=== PATIENT | female | born 1970 | race African-American/Black ===

== ENCOUNTER 2016-10-10 11:40 | Observation (INO) ==
[2016-10-10] MEDS ORDERED: ALUM/MAG/SIMETH/LIDO VISC 1:1 30 ML BOTTLE PO STA (13:01)
[2016-10-10] MEDS ORDERED: ENOXAPARIN 100 MG/ML SYRINGE SUBCUT STA (13:01)
[2016-10-10] MEDS ORDERED: NITROGLYCERIN SL 0.4 MG TABLET SL PRN (13:01)
[2016-10-10] MEDS ORDERED: MORPHINE 2 MG/1 ML SYRINGE IV PRN ×2 (13:01→16:16)
[2016-10-10] MEDS ORDERED: ONDANSETRON 4 MG/2 ML VIAL IV PRN (13:01)
[2016-10-10] MEDS ORDERED: ASPIRIN 325 MG TABLET PO STA (13:01)
[2016-10-10] MEDS ORDERED: NITROGLYCERIN 2% OINT 1 INCH/GM PACK TOP STA (13:01)
--- NOTE | 2016-10-10 13:05 | EKG Report ---
Stationary ECG Study [facility] ER Test Date: 10/10/2016 11:49:09 AM Pat Name: RADHA OROZCO Department: Room: Gender: F Lead Cashier: Kathie Mcdonough : 1970 Requested by: Berry Qureshi Order Number: [id number] Reading MD: RAY GUDINO Intervals [place] Rate: 98 P: 73 DC: 120 QRS: 50 QRSD: 93 T: 71 QT: 326 QTc: 381 Interpretive Statements SINUS RHYTHM Electronically Signed On 10-11-16 18:51:32 CDT by RAY GUDINO [email or web address]
--- NOTE | 2016-10-10 13:05 | Emergency Department Note ---
Arrival - Arrival Chief Complaint: Chest Pain Stated Complaint: chest pain ED Nursing Triage Note: pain in center of chest that started last night while she was at work. denies any other s/s. reports some stress. reports a soreness to left shoulder to in the joint. Mode of Arrival: Ambulatory Source: Patient, RN Notes Reviewed Time Seen by Provider: 10/10/16 12:52 - History of Present Illness HPI Narrative: Patient is a 46-year-old black female with a history of left-sided chest pain which began yesterday and has been off and on since that time. Patient cannot relate her pain to exertion. There is no specific activity that brings on her pain. She states that she feels that she is under a lot of stress at work. She denies associated shortness of breath or diaphoresis. She denies associated nausea. She has had a cough. She denies sputum production. There is no history of hemoptysis. She does not smoke cigarettes. She does have a history of hypertension but denies any history of diabetes mellitus. There is no family history of coronary artery disease in her mother father or brothers. Date of Last Menstrual Period: 09/22/16 Allergies/Adverse Reactions: Allergies Allergy/AdvReac Type Severity Reaction Status Date / Time No Known Allergies Allergy Verified 07/19/16 10:28 Home Medications: Home Medications Medication Instructions Recorded Confirmed Type Losartan Potassium [Losartan 50 mg PO QAM 10/10/16 10/10/16 History Potassium] Review of System - Review of System 12 point system: reviewed and no additional remarkable complaints except as stated - Review of System Constitutional: Absent: chills, fever Respiratory: Present: cough. Absent: respiratory distress, wheezing Cardiovascular: Present: chest pain. Absent: palpitations, dyspnea on exertion , orthopnea, edema Gastrointestinal: Absent: abdominal pain, nausea, vomiting Genitourinary female: Absent: dysuria Medical,Surgical,& Family Hx - Medical History Cardio: History of: Hypertension - Family History Family History: Reports;: Family Hypertension - Social History Smoking Status: Never smoker Functional capacity: independent ambulation Exam Vital Signs: Vital Signs Temperature 98.1 F 10/10/16 13:00 Pulse Rate 90 10/10/16 14:15 Respiratory Rate 20 10/10/16 14:15 Blood Pressure 153/92 10/10/16 14:15 O2 Sat by Pulse Oximetry 98 10/10/16 14:15 GENERAL: This is a well-nourished well-developed black female in no apparent distress. VITAL SIGNS: Reviewed HEENT: Head is atraumatic and normocephalic. Pupils are equal round react to light. Extraocular movements are intact. Oropharynx is benign with moist mucous membranes. NECK: Neck is soft and supple without tenderness. There are no masses. There is no lymphadenopathy. LUNGS: Lungs are clear to auscultation. Chest rises symmetrically. There is minimal tenderness to palpation over the left anterior chest wall adjacent to the costochondral junction chest wall tenderness. CV: Heart is regular rate and rhythm without murmurs rubs or gallops. ABDOMEN: Abdomen is soft, nontender to palpation. There are no abdominal abnormal masses palpated. There is no organomegaly. Bowel sounds are present and active. SKIN: Skin is warm and dry. No rash. EXTREMITIES: Patient has full range of motion without tenderness. There is no pedal edema. NEUROLOGIC: Awake alert and oriented 4. Cranial nerves II through XII are grossly intact. Motor is 5 over 5 in all extremities bilaterally. Course - Reevaluation(s) Reevaluation #1: Pain is relieved with Nitropaste and possibly GI cocktail. Patient states that she feels much better. Time: 15:25 - Consultations Consultation #1: Discussed with hospitalist. Patient will be admitted to their service for possible GXT in a.m. Time: 15:25 Results - Labs CBC & BMP: 10/10/16 14:25 10/10/16 14:25 Lab Results: I have reviewed the patients labs - EKG EKG results: interpreted by ERMD - Impressions EKG: Normal sinus rhythm with a rate of 98, normal ST-T waves, normal axis. - Diagnostic Findings Procedure: Chest x-ray: image reviewed by me (No infiltrates, no pleural effusions, no cardiomegaly) Disposition Clinical Impression: Chest pain, Essential hypertension Case discussed with: patient Condition: Stable Time of Disposition: 15:26
--- NOTE | 2016-10-10 13:44 | XRay Report ---
Two-view chest. Indication: Chest pain. Comparison: September 23, 2007. The heart and mediastinal contours are unremarkable. The pulmonary vasculature is normal. There is no consolidation, pneumothorax, or pleural effusion. The osseous structures are unremarkable. Impression: No abnormality is seen. PROCEDURE INTERPRETED AT [facility] DEPARTMENT OF RADIOLOGY Final Report Signed by: Dr. Hiral East
[2016-10-10] MEDS ORDERED: NITROGLYCERIN 2% OINT 1 INCH/GM PACK TOP ONE (13:55)
[2016-10-10] MEDS ORDERED: ENOXAPARIN 80 MG/0.8 ML SYRINGE SUBCUT ONE (13:56)
[2016-10-10] MEDS ORDERED: ALUM/MAG/SIMETH/LIDO VISC 1:1 30 ML BOTTLE PO ONE (13:56)
[2016-10-10] MEDS ORDERED: ASPIRIN 325 MG TABLET ONE (13:56)
[2016-10-10 14:21] LABS: Apearance,Urine CLEAR (Clear); Bilirubin,Urine Negative (Negative); Blood, Urine Small mg/dL (Negative); Glucose,Urine (UA) Negative (Negative); Ketones,Urine 5 mg/dL (Negative); Nitrite,Urine Negative (Negative); Protein,Urine Negative; RBC,Urine 1 /HPF (0-4); Urine Color Straw (Yellow); Urine Specific Gravity 1.003 (1.001-1.035); Urine Urobilinogen < 2.0 EU/DL (0.2-1.0); WBC,Urine <1 /HPF (0-6)
[2016-10-10 14:34] LABS: Basophils % 0.3 % (0.0-0.8); Eosinophils % 0.2 % (0.00-10.9); Hematocrit 42.1 VOL% (35.7-47.0); Hemoglobin 13.5 GM/DL (12.0-16.0); Immature Granulocytes % 0.2 %; Immature Granulocytes Absolute 0.02 #; Lymphocytes # 1.4 10*3/uL (1.4-4.0); Lymphocytes % 15.6 % (21.3-54.2); Mean Corpuscular HGB Conc 32.1 GM/DL (32-36); Mean Corpuscular Hemoglobin 28 PG (27-34); Mean Corpuscular Volume 86.4 FL (87-102); Mean Platelet Volume 11.8 FL (9.6-12.0); Monocytes # 0.6 10*3/uL (0.11-0.8); Monocytes % 6.2 % (1.7-12.7); Neutrophils # 7.1 10*3/uL (1.4-7.4); Neutrophils % 77.5 % (38.7-73.9); Platelet Count 203 T/CUMM (130-400); Red Blood Count 4.87 MC/CUMM (3.8-5.5); Red Cell Distribution Width 13.2 % (9.3-17.3); White Blood Count 9.2 T/CUMM (4-12)
[2016-10-10 14:41] LABS: Barbiturates Screen,Urine Negative (Negative); Benzodiazepines Screen,Urine Negative (Negative); Cannabinoid Screen,Urine Negative (Negative); Opiate Screen,Urine Negative (Negative); Phencyclidine Screen,Urine Negative (Negative)
[2016-10-10 14:49] LABS: Magnesium 2.4 MG/DL (1.8-2.4); PT Patient Result 10.5 SECS; Partial Thromboplastin Time 28.8 SECS (0-40)
[2016-10-10 14:54] LABS: Albumin 4.5 G/DL (3.4-5.0); Bilirubin,Total 0.7 MG/DL (0.2-1.0); Calcium 9.4 MG/DL (8.5-10.1); Osmolality,Calculated 268.8 MOS/KG (273-304); Potassium 5.2 MMOL/L (3.5-5.1); Total Protein 8.5 G/DL (6.4-8.3)
[2016-10-10] MEDS ORDERED: PROMETHAZINE 25 MG TABLET PO PRN (16:16)
[2016-10-10] MEDS ORDERED: guaiFENesin/DM ER 600-30 MG TABLET PO PRN (16:16)
[2016-10-10] MEDS ORDERED: ACETAMINOPHEN 325 MG TABLET PO PRN (16:16)
[2016-10-10] MEDS ORDERED: diphenhydrAMINE CAP 25 MG CAPSULE PO PRN (16:16)
[2016-10-10] MEDS ORDERED: DOCUSATE SODIUM 100 MG CAPSULE PO PRN (16:16)
--- NOTE | 2016-10-10 16:24 | Hospitalist History & Physical ---
<Erna Mann - Last Filed: 10/10/16 16:19> Assessment and Plan - Time spent with patient Time spent with patient: Greater than 30 minutes (1) Chest pain Status: Acute Assessment and plan: Ms. Delcid is a 46-year-old -Welsh female with history of hypertension admitted by hospitalist service under observation for chest pain. She does have hypertension so restart her home medicines so she did not take them this morning. We will go ahead and get serial troponins and serial EKG and monitor. Because patient has minimal risk factors we will hold off on cardiology consult to see what her serial labs show. Dr. House to see and examined patient and further recommendations to follow. Current Visit: Yes (2) Essential hypertension Status: Acute Current Visit: Yes History of Present Illness Chief complaint: chest pain History of present illness: Ms. Delcid is a 46 year old female with history of hypertension presenting to the ED today with 24 hour history of intermittent chest pain. Patient rates the pain at 2-5 out of 10. She does not associate the pain with nausea, vomiting, SOB or diaphoresis. pt states she lifts heavy things at work and she did a lot of it yesterday. she feels the pain mostly at work and when she gets home and relaxes, it goes away. she did not take her BP med today and she has no FH of heart problems. she denies headache, sob, nausea and vomiting, constipation, abdominal pain, or LE edema. today, her labs are normal and ekg is ok. she states the pain went away w the nitro patch put on in ED. patient is in no distress and her blood pressure is mildly elevated. She is nontender to the left chest wall and nontender with left upper extremity movement. pt was discussed w ED physician dr merino and hospitalist, dr house and it was decided the pt would be admitted for observation. Home Medications Medication Instructions Recorded Confirmed Type Losartan Potassium [Losartan 50 mg PO QAM 10/10/16 10/10/16 History Potassium] Allergies Allergy/AdvReac Type Severity Reaction Status Date / Time No Known Allergies Allergy Verified 07/19/16 10:28 Medical,Surgical,& Family Hx - Medical History Cardio: History of: Hypertension - Surgical History Reproductive Surgeries: Surgical HX of;: Tubal Ligation - Family History Family History: Denies;: Family Hypertension - Social History Smoking Status: Never smoker Frequency of Alcohol Use: None Type of Drug Use: None Functional capacity: independent ambulation Review of systems: A complete 10 system review of systems was obtained and pertinent positives and negatives per HPI Exam - Constitutional Vitals: Period Temp Pulse Resp BP Sys/Dasilva Pulse Ox Last 24 Hr 98.1 F-98.1 F 90-112 18-20 153-170/86-106 98-100 Exam: Constitutional System: No distress. No tremulousness. Head: Normocephalic, atraumatic. Ears, Nose and Throat System: No evidence of Otitis or Mastoiditis. No epistaxis or discharge Eyes System: Pupils equal, round, and reactive. Extraocular muscles intact. Neck: Supple, without adenopathy, No jugular venous distention. No thyromegaly, neck mass, or prior surgery apparent. Respiratory System: Chest clear to auscultation. Cardiovascular System: Heart with regular rate and rhythm. No murmur. GI System: Abdomen soft, nontender. Normo active bowel sounds present. Musculoskeletal System: limbs with no pedal edema. Full distal pulses. Neurological System: No discernable sensory deficit. No aphasia Psychiatric System: Conversation is rational Results - Labs CBC & BMP: 10/10/16 14:25 10/10/16 14:25 Lab Results: I have reviewed the past 24 hour labs - EKG EKG results: sinus rhythm - Diagnostic Findings Procedure: Chest x-ray: report reviewed by me (No acute process) <Carmen House - Last Filed: 10/10/16 16:50> Assessment and Plan - Time spent with patient Time spent with patient: Less than 30 minutes History of Present Illness History of present illness: Patient seen and examined along with JENNY Mann, agree with history, assessment and plan as documented. 46 y/o AAF with HTN admitted with chest pain which started last night. Initial troponin negative. Pain is not reproducible to palpation. She is not a smoker and denies a family history of CAD. Will trend troponin. Exam - Constitutional Vitals: Period Temp Pulse Resp BP Sys/Dasilva Pulse Ox Last 24 Hr 98.1 F-98.1 F 90-112 18-20 153-170/86-106 98-100 Results - Labs CBC & BMP: 10/10/16 14:25 10/10/16 14:25
[2016-10-10] MEDS ORDERED: ENOXAPARIN 40 MG/0.4 ML SYRINGE SUBCUT SCH (16:30)
[2016-10-10] MEDS: PANTOPRAZOLE 40 MG TABLET PO SCH (18:05)
[2016-10-10] MEDS: SODIUM CHLORIDE 0.9% 1,000 ML IV SCH (18:06)
[2016-10-10 18:57] LABS: Troponin I Only < 0.015 NG/ML (0.00-0.045)
[2016-10-11 00:34] LABS: Troponin I Only < 0.015 NG/ML (0.00-0.045)
[2016-10-11 04:41] LABS: Basophils % 0.5 % (0.0-0.8); Eosinophils % 0.5 % (0.00-10.9); Hematocrit 37.3 VOL% (35.7-47.0); Hemoglobin 11.7 GM/DL (12.0-16.0); Immature Granulocytes % 0.4 %; Immature Granulocytes Absolute 0.03 #; Lymphocytes # 1.9 10*3/uL (1.4-4.0); Lymphocytes % 24.4 % (21.3-54.2); Mean Corpuscular HGB Conc 31.4 GM/DL (32-36); Mean Corpuscular Hemoglobin 27 PG (27-34); Mean Corpuscular Volume 87.1 FL (87-102); Mean Platelet Volume 11.5 FL (9.6-12.0); Monocytes # 0.8 10*3/uL (0.11-0.8); Monocytes % 9.9 % (1.7-12.7); Neutrophils # 5.1 10*3/uL (1.4-7.4); Neutrophils % 64.3 % (38.7-73.9); Platelet Count 184 T/CUMM (130-400); Red Blood Count 4.28 MC/CUMM (3.8-5.5); Red Cell Distribution Width 13.2 % (9.3-17.3); White Blood Count 7.9 T/CUMM (4-12)
[2016-10-11 05:17] LABS: Troponin I Only < 0.015 NG/ML (0.00-0.045)
[2016-10-11 05:21] LABS: Risk Ratio 2.81; VLDL CHOLESTEROL 11.2 MG/DL
[2016-10-11 06:26] LABS: Calcium 8.2 MG/DL (8.5-10.1); Osmolality,Calculated 280.1 MOS/KG (273-304); Potassium 3.8 MMOL/L (3.5-5.1); Thyroid Stimulating Hormone 2.75 uIU/ml (0.358-3.74)
[2016-10-11] MEDS: SODIUM CHLORIDE 0.9% 1,000 ML IV SCH (06:50)
[2016-10-11 08:11] VITALS: BP 126/85
--- NOTE | 2016-10-11 08:55 | Discharge Summary ---
Hospital Course - Hospital Course Hospital Course: On 10/10/2016 Ms. Marcus Delcid was admitted to [facility] through the emergency room with complaints of intermittent chest pain over the preceding 24 hours. Patient was put on telemetry floor evaluated with a serial troponins and EKG chest x-ray and cardiac monitoring. No events over the ensuing 24 hours. Troponins were nondiagnostic EKG is normal and the chest x- ray is normal. Patient acknowledges a lot of stress in her life. She also does acknowledge having had epigastric discomfort with a lot of burping. Suspicion is that his symptoms may have been gastrointestinal in origin. Her stress and possible panic state is a possibility too. I would encourage the patient to be on an antacid and possible simethicone about 2 weeks. She needs to follow-up with her primary care provider on Friday prior to returning to work. Note has been provided for her. Patient to be discharged home with those interventions. Discharge Plan - Discharge Data Disposition: Disch To Home/Self Care Condition at Discharge: Stable Discharge Diet: heart healthy Activity: resume usual activities as tolerated Hygiene: no restrictions Weight Bearing at Discharge: weight bear as tolerated Driving: not until seen by doctor Contact your physician if you experience:: Nausea/Vomiting, Shortness of breath - Discharge Medications New Simethicone Chew Tab [Mylicon Chew Tab] 80 mg PO BID PRN #60 tablet PRN Reason: Gas Pantoprazole Tab [Protonix Tab] 40 mg PO DAILY #30 tablet Continue Losartan Potassium 50 mg PO QAM - Follow Up or Referral - Forms/Instructions Exam - Constitutional Vitals: Period Temp Pulse Resp BP Sys/Dasilva Pulse Ox Last 24 Hr 97.5 F-99.8 F 71-912 16-20 115-139/73-93 100-100 General appearance: normal weight - Head Head exam: Present: normal inspection, normocephalic, atraumatic, other - Eye Eye exam: Present: EOMI Pupils: Present: NICHOLAS - ENT ENT exam: Present: normal oropharynx - Neck Neck exam: Present: normal inspection, other (Supple neck midline trachea no stridor no JVD no bruits) - Respiratory Respiratory exam: Present: clear to auscultation bilaterally, other (No rales no wheezing) - Cardiovascular Cardiovascular exam: Present: regular rate and rhythm, other (No murmurs no gallops) - GI/Abdominal GI/Abdominal exam: Present: normal bowel sounds, soft - Extremities Exam Extremities exam: Present: full ROM - Back Exam Back exam: Present: normal inspection - Neurological Exam Neurological exam: Present: alert, oriented X3, CN II-XII intact - Psychiatric Psychiatric exam: Present: normal affect, normal mood - Skin Skin exam: Present: normal color, warm, dry Discharge Results Labs on day of discharge: Labs from last 24 hours 10/11/16 10/11/16 10/11/16 04:24 04:24 04:24 WBC RBC Hgb Hct MCV MCH MCHC RDW Plt Count MPV Neut % (Auto) Lymph % (Auto) [place] % (Auto) Eos % (Auto) Baso % (Auto) Neut # (Auto) Lymph # (Auto) [place] # (Auto) Eos # (Auto) Baso # (Auto) Immature Gran % Nucleated RBC % Immature Gran # Nucleated RBCs # Sodium 142 Potassium 3.8 Chloride 110 H Carbon Dioxide 22 Anion Gap 13.8 BUN 8 Creatinine 0.90 GFR Calculation 115 BUN/Creatinine Ratio 8.00 Glucose 91 Calculated Osmolality 280.1 Calcium 8.2 L Total Creatine Kinase 101 CK-MB (CK-2) < 1.0 Troponin I < 0.015 Triglycerides 56 Cholesterol 177 LDL Cholesterol 118.0 VLDL Cholesterol 11.2 HDL Cholesterol 63 H Heart Disease Risk Ratio 2.81 TSH 3rd Generation 2.750 10/11/16 10/10/16 10/10/16 04:24 23:45 18:19 WBC 7.9 RBC 4.28 Hgb 11.7 L Hct 37.3 MCV 87.1 MCH 27 MCHC 31.4 L RDW 13.2 Plt Count 184 MPV 11.5 Neut % (Auto) 64.3 Lymph % (Auto) 24.4 [place] % (Auto) 9.9 Eos % (Auto) 0.5 Baso % (Auto) 0.5 Neut # (Auto) 5.1 Lymph # (Auto) 1.9 [place] # (Auto) 0.8 Eos # (Auto) 0.0 Baso # (Auto) 0.0 Immature Gran % 0.4 Nucleated RBC % 0.0 Immature Gran # 0.03 Nucleated RBCs # 0.00 Sodium Potassium Chloride Carbon Dioxide Anion Gap BUN Creatinine GFR Calculation BUN/Creatinine Ratio Glucose Calculated Osmolality Calcium Total Creatine Kinase 102 120 CK-MB (CK-2) < 1.0 < 1.0 Troponin I < 0.015 < 0.015 Triglycerides Cholesterol LDL Cholesterol VLDL Cholesterol HDL Cholesterol Heart Disease Risk Ratio TSH 3rd Generation - Additional Comments Troponins were nondiagnostic EKG is normal sinus rhythm no ectopy and no ST-T abnormalities no signs of NSTEMI or STEMI. Chest x-ray is normal. DS: Provider Date of admission: 10/10/16 16:16 Primary care physician: . No PCP Attending physician on admission: Carmen House MD Consults: 10/10/16 16:25 Consult to Pharmacy [CONS] Routine Reason for Pharmacy Consult: Adjust Meds Renal Funct Discharging clinician: Greg Velásquez MD
[2016-10-11] MEDS ORDERED: LOSARTAN 50 MG TABLET PO SCH (09:00)
[2016-10-11] MEDS ORDERED: SIMETHICONE CHEW 80 MG TABLET PO PRN (09:00)
[2016-10-11] MEDS: PANTOPRAZOLE 40 MG TABLET PO SCH (09:17)
== END 2016-10-11 10:05 | disposition home or self-care (01) ==
LOC: N.EDINP 11:40 → N.ED 11:40 → SUATTDRO 16:16 → N.EDINP 17:25 → N.TELEN 17:49
PROVIDERS: ADMIT Internal Medicine; ATTEND Internal Medicine Infectious Disease